=== PATIENT | male | born 1965 | race Caucasian/White ===

== ENCOUNTER 2024-12-01 23:04 | Emergency (ER) | payer MEDICAID, SELFPAY ==
[2024-12-01 23:06] VITALS: BP 134/78
--- NOTE | 2024-12-02 00:39 | ED.SKININJ ---
HPI-Injury
General
Chief Complaint: Bite
Source: patient
Exam Limitations: none
Time Seen by Provider: 12/02/24 00:00
Nursing documentation reviewed up to this point in time: agreed with
History of Present Illness-Injury
Initial Injury comments:
59-year-old male with no reported chronic issues presents for evaluation of rash on his leg and concern for Lyme's disease. Patient reports that tonight he noticed a circular bull's-eye rash on his right posterior thigh. He says that he had
similar rash in the past that was due to Lyme's disease and so he recognized it and came to the ER to start treatment. He denies any other symptoms�specifically denies fever, joint pains. He does not recall a specific tick bite.
Review of Systems
Review of Systems
All Other Systems: ROS reviewed and negative except as documented in HPI and ROS
Constitutional: Denies fever or chills
Musculoskeletal: Denies joint pain
Skin: Reports rash
Phy Exam
Physical Exam
Physical Exam:
General: Well appearing and non-toxic
HEENT: protecting airway
Neck: appears supple
CV: No evidence of cyanosis
Resp: No accessory muscle use
Abd: Non-distended
Extremities: No deformities
Neuro: Alert
Psych: Normal affect
Skin: Patient has a bull's-eye rash right posterior lateral thigh just proximal to the knee
Scores
Heart Failure Risk
Heart Failure Risk Score: Not Applicable
Heart Score for Chest Pain Patients
STEMI patient?: Not applicable
Withdrawal Assessment of Alcohol
Withdrawal Assessment Completed?: Not applicable
Course
Orders/Labs/Results
Orders:
Orders
12/02/24 00:26
Doxycycline [Vibramycin] 100 mg PO NOW STA
Vital Signs
Initial and Last Documented VS:
Initial Vital Signs
Temp Pulse Resp BP Pulse Ox
37.1 C 70 18 134/78 98
12/01/24 23:06 12/01/24 23:06 12/01/24 23:06 12/01/24 23:06 12/01/24 23:06
Last Documented Vital Signs
Temp Pulse Resp BP Pulse Ox
36.6 C 55 20 134/78 98
12/02/24 00:20 12/02/24 00:20 12/02/24 00:20 12/01/24 23:06 12/02/24 00:20
MDM/Problems Addressed
Differential Diagnosis Includes:
Erythema migrans, cellulitis, folliculitis
MDM/Problems Addressed:
59-year-old male presents for rash noted on his thigh�rash is consistent with erythema migrans. Patient has had Lyme's disease in the past and was treated. Little utility in repeating Lyme's test given prior infection. Will treat empirically with
doxycycline. He will follow-up with his primary doctor. All questions answered.
*Pulse Oximetry
SaO2: 98
Oxygen Mode of Delivery: Room air
Patient hypoxic: no (98%)
*Critical Care Note
Total Time (30-74mins, 75-104mins- exclusive of procedures): Not Applicable
Data Reviewed
Source: patient
ED Attending Note
-
Portions of this chart may have been created with voice recognition software.� Occasional wrong word or��sound alike� substitutions may have occurred due to the inherent limitations of voice recognition software.
Discharge Plan
Departure
Patient Disposition: Home (Routine Discharge)
Date of Disposition: 12/02/24
Time of Disposition: 00:24
Patient with high blood pressure during this ER visit?: No
Discharge Problem:
Erythema migrans (Lyme disease)
Instructions: Lyme Disease (DC)
Prescriptions:
New
doxycycline hyclate 100 mg capsule
100 mg PO BID 14 Days Qty: 28 0RF
Activity Restrictions/Additional Instructions:
Thank you for visiting the Emergency Department at [facility].
1. Please schedule a follow up appointment as directed. Call first thing tomorrow morning to make an appointment.
2. If indicated, please take your medications as instructed and indicated on discharge paperwork.
3. If any of your symptoms do not improve, or persist, or become more severe within 6-12 hours, please return to the emergency department for further care.
4. Please return to the emergency department if you develop a headache, neck pain/stiffness, fever greater than 100.4F, chest pain, shortness of breath, persistent nausea, vomiting, slurred speech, difficulty walking, numbness/tingling, weakness,
signs of infection or any other symptoms that are worrisome to you.
Please call [phone] if you have any questions.
Interventions
Interventions:
*Risk Screen - Suicide Last Done: 12/01/24 23:06
*General Assessment Last Done: 12/02/24 00:15
*Neglect/Abuse Screening Last Done: 12/01/24 23:06
*ED- Fall Risk Assessment Last Done: 12/02/24 00:15
*ED COVID-19 Vaccine History Last Done: 12/02/24 00:15
ED-Skin Assessment Last Done: 12/02/24 00:18
Discharge Date and Time
Print Language: PORTUGUESE
[2024-12-02] MEDS: VIBRAMYCIN 100 MG PO (00:41)
[2024-12-02 00:43] VITALS: BP 130/70
== END 2024-12-02 00:47 | disposition home or self-care (01) ==
LOC: EMR 23:04
PROVIDERS: EMERGENCY PHYSICIAN Emergency Medicine
DX: R21 Rash and other nonspecific skin eruption (principal); A26.0 Cutaneous erysipeloid; A69.29 Other conditions associated with Lyme disease
CPT/HCPCS: 99283